=== PATIENT | female | born 1980 | race American Indian/Alaskan Native ===

== ENCOUNTER 2019-08-03 16:00 | Emergency (ER) | payer MEDICAID ==
[2019-08-03] MEDS ORDERED: SODIUM CHLORIDE 0.9% 1000 ML 1,000 ML IV ONE ×2 (18:01→22:40)
--- NOTE | 2019-08-03 18:19 | Emergency Department Report ---
ED Syncope HPI - General Chief Complaint: Headache Stated Complaint: ABDOMINAL PAIN/VOMITING Time Seen by Provider: 08/03/19 18:01 Source: patient, family Exam Limitations: no limitations - History of Present Illness Initial Comments: Patient is a 39-year-old female that presents emergency room for syncopal episode and fall. Patient states she was at work felt lightheaded went to the bathroom and woke up 2 hours later. Patient states her coworkers had to wake her up and called EMS. Patient states she doesn't remember anything but notes that she fell and has a headache. Patient states she must of hit her head and face because she chipped her tooth. Patient also sustained a abrasion to her bottom lip. Patient states she is having a headache at this time at a 10 out of 10. Patient states it is worse with movement and light. Patient states is better with closing her eyes and rest. States she's having 10 out of 10 abdominal pain. Patient states the pain is generalized. Patient denies nausea vomiting. Patient denies diarrhea. Patient states she feels disoriented. Timing/Prior Episodes: no prior history Precipitating Factors: Positive: lightheadedness Context: standing Loss of Consciousness: prolonged (minutes) (2 hours) Current Symptoms: blurred vision, dizziness, headache, injury, lightheadedness, weakness. denies: chest pain, diaphoresis, loss of bladder control, loss of bowel control, motionless, nausea, pale, shallow/rapid breathing, weak/absent pulse - Related Data Allergies/Adverse Reactions: Allergies No Known Allergies Allergy (Verified 08/03/19 18:02) Home Medications: Ambulatory Orders No Known Home Medications [No Reported Home Medications] 08/03/19 ED Review of Systems ROS: Stated complaint: ABDOMINAL PAIN/VOMITING Other details as noted in HPI Constitutional: denies: chills, fever Eyes: denies: eye pain, eye discharge, vision change ENT: denies: ear pain, throat pain Respiratory: denies: cough, shortness of breath, wheezing Cardiovascular: denies: chest pain, palpitations Endocrine: no symptoms reported Gastrointestinal: abdominal pain. denies: nausea, diarrhea Genitourinary: denies: urgency, dysuria, discharge Musculoskeletal: denies: back pain, joint swelling, arthralgia Skin: denies: rash, lesions Neurological: denies: headache, weakness, paresthesias Psychiatric: denies: anxiety, depression Hematological/Lymphatic: denies: easy bleeding, easy bruising ED Past Medical Hx - Past Medical History Previous Medical History?: No Additional medical history: Tubes tied - Surgical History Past Surgical History?: Yes Additional Surgical History: tubal ligation - Family History Family history: no significant - Social History Smoking Status: Never Smoker Substance Use Type: None - Medications Home Medications: Home Medications Medication Instructions Recorded Confirmed Last Taken Type No Known Home Medications [No 08/03/19 08/03/19 Unknown History Reported Home Medications] ED Physical Exam - General Limitations: No Limitations General appearance: alert, in no apparent distress - Head Head exam: Present: atraumatic, normocephalic - Eye Eye exam: Present: normal appearance, PERRL, EOMI Pupils: Present: normal accommodation - ENT ENT exam: Present: mucous membranes moist - Neck Neck exam: Present: normal inspection - Respiratory Respiratory exam: Present: normal lung sounds bilaterally. Absent: respiratory distress, wheezes, rales - Cardiovascular Cardiovascular Exam: Present: regular rate, normal rhythm. Absent: systolic murmur, diastolic murmur, rubs, gallop - GI/Abdominal GI/Abdominal exam: Present: soft, normal bowel sounds - Rectal Rectal exam: Present: deferred - Extremities Exam Extremities exam: Present: normal inspection, full ROM - Back Exam Back exam: Present: normal inspection - Neurological Exam Neurological exam: Present: alert, altered - Skin Skin exam: Present: warm, dry, normal color, abrasion (lower lip). Absent: rash ED Course Vital Signs 08/03/19 08/03/19 08/03/19 16:05 16:15 16:19 Temperature 98.3 F Pulse Rate 92 H 76 83 Respiratory 18 15 18 Rate Blood Pressure 141/60 Blood Pressure 141/60 [Left] O2 Sat by Pulse 97 100 97 Oximetry 08/03/19 08/03/19 08/03/19 16:31 16:45 17:00 Temperature Pulse Rate 84 91 H 87 Respiratory 16 15 19 Rate Blood Pressure 144/74 141/86 119/66 Blood Pressure [Left] O2 Sat by Pulse 100 100 100 Oximetry 08/03/19 08/03/19 08/03/19 17:31 18:00 18:30 Temperature Pulse Rate 73 71 89 Respiratory 19 24 20 Rate Blood Pressure 127/60 159/65 141/70 Blood Pressure [Left] O2 Sat by Pulse 100 100 100 Oximetry 08/03/19 08/03/19 08/03/19 19:00 19:31 20:01 Temperature Pulse Rate 90 Respiratory 28 H 29 H Rate Blood Pressure 155/75 141/70 135/73 Blood Pressure [Left] O2 Sat by Pulse 100 100 96 Oximetry 08/03/19 08/03/19 08/03/19 20:05 20:30 20:35 Temperature Pulse Rate Respiratory 18 18 Rate Blood Pressure 123/65 Blood Pressure [Left] O2 Sat by Pulse 98 Oximetry 08/03/19 08/03/19 08/03/19 21:13 21:30 22:00 Temperature Pulse Rate Respiratory Rate Blood Pressure 122/59 124/60 124/60 Blood Pressure [Left] O2 Sat by Pulse 99 100 100 Oximetry 08/03/19 08/03/19 08/03/19 22:48 23:00 23:30 Temperature Pulse Rate 78 86 Respiratory 16 24 17 Rate Blood Pressure 131/58 140/64 143/72 Blood Pressure [Left] O2 Sat by Pulse 98 99 Oximetry 08/04/19 00:00 Temperature Pulse Rate 81 Respiratory 25 H Rate Blood Pressure 143/72 Blood Pressure [Left] O2 Sat by Pulse 98 Oximetry - Reevaluation(s) Reevaluation #1: She still complaining of a severe headache. Patient will be given Dilaudid 08/03/19 19:53 Reevaluation #2: Family at bedside. Patient states her headache is improving. 08/03/19 21:20 Reevaluation #3: Patient states her headache is returning. Patient given another dose of Dilaudid. Blood pressure better. 08/03/19 22:25 - Consultations Consultation #1: Radiologist called states the patient has signs of a ruptured aneurysm and recommends a CTA. 08/03/19 21:50 Consultation #2: [facility] paged 08/03/19 23:45 I discussed case with neurosurgeon, Dr. Akers. Dr. Akers has accepted the patient to be transferred to [facility] neuro ICU. 08/03/19 23:59 ED Medical Decision Making - Lab Data Result diagrams: 08/03/19 08:10 08/03/19 19:30 - EKG Data -: EKG Interpreted by Al EKG shows normal: sinus rhythm, axis, intervals, QRS complexes, ST-T waves Rate: normal - Radiology Data Radiology results: report reviewed Exam: CT cervical spine History: fall.; Technique: Contiguous thin cut axial images obtained through the cervical spine. Sagittal and coronal reconstructions performed by the technologist. All CT scans at this location are performed using CT dose reduction for ALARA by means of automated exposure control. Findings: No priors. There is no evidence of fracture or traumatic subluxation. Vertebral bodies are normal in height and alignment. Minimal loss of disc height is seen at C5-C6 level. Other disc heights are normal. Broad-based disc protrusion with calcified annulus seen. Right neuroforamen is narrowed. No significant degenerative change seen in the uncinate or facet joints. Surrounding soft tissues are grossly normal. Impression: No signs of acute bony trauma to the cervical spine. CT head/brain wo con INDICATION / CLINICAL INFORMATION: 39 years Female; Headache. syncope. head injury. TECHNIQUE: Routine CT head without contrast. All CT scans at this location are performed using CT dose reduction for ALARA by means of automated exposure control. COMPARISON: None. FINDINGS: This is an abnormal CT scan. BRAIN / INTRACRANIAL CONTENTS: Subarachnoid hemorrhage is seen in the anterior interhemispheric fissure, sella turcica and in the pericallosal cyst on. These findings suggest subarachnoid hemorrhage. Though post traumatic subarachnoid hemorrhages could happen, these are usually sulcal and focal and not cisternal.Lateral ventricles and third ventricle are mildly dilated. These findings, subarachnoid hemorrhage possibly from anterior communicating artery has to be excluded. Please obtain CTA of the brain. CRANIOCERVICAL JUNCTION: No significant abnormality. ORBITS: No significant abnormality of visualized orbits. SINUSES / MASTOIDS: No significant abnormality of the visualized paranasal sinuses or mastoid air cells. ADDITIONAL FINDINGS: None. IMPRESSION: Arachnoid hemorrhage in the interhemispheric fissure extending around the pericallosal cistern; anterior communicating artery aneurysm rupture CT ABDOMEN AND PELVIS WITH CONTRAST INDICATION: abd pain. TECHNIQUE: Axial CT images were obtained through the abdomen and pelvis after 100 cc Omnipaque [address] scans at this location are performed using CT dose reduction for ALARA by means of automated exposure control. COMPARISON: None available. FINDINGS: LOWER CHEST: No significant abnormality. LIVER: 6 cm hemangioma anterior hepatic segment with peripheral nodular discontinuous enhancement. No liver laceration. No perihepatic fluid. GALLBLADDER: No significant abnormality. BILE DUCTS: No significant abnormality. PANCREAS: No significant abnormality. SPLEEN: No significant abnormality. ADRENALS: No significant abnormality. RIGHT KIDNEY and URETER: No significant abnormality. LEFT KIDNEY and URETER: No significant abnormality. STOMACH and SMALL BOWEL: No significant abnormality. COLON: No significant abnormality. APPENDIX: No significant abnormality. PERITONEUM: No free fluid. No free air. No fluid collection. LYMPH NODES: No significant adenopathy. AORTA and ARTERIES: No significant abnormality. IVC and VEINS: No significant abnormality. URINARY BLADDER: No significant abnormality. REPRODUCTIVE ORGANS: No significant abnormality. ADDITIONAL FINDINGS: None. SKELETAL SYSTEM: No significant abnormality. IMPRESSION: 1. No traumatic intra-abdominal or pelvic injury. 2. 6 cm hemangioma within anterior hepatic segment CT FACE HISTORY: Fell down COMPARISON: None. TECHNIQUE: Axial images of the face were obtained. Sagittal and coronal reformats were generated. CONTRAST: None. FINDINGS: Facial bones: Midface is normal. Nasal bones, perpendicular plate of ethmoid and median nasal septum are normal. I do not see soft tissue swelling along the median nasal septum. Bony septal spur is projecting to the right side. Orbits are normal. Zygomaxillary complex is normal. Mandible is normal. Orbits: No significant abnormality. Additional findings: None. IMPRESSION: 1. No significant abnormality. - Medical Decision Making Patient is a 39-year-old female that presents emergency room with dizziness and headache and Prolonged syncopal episode. Patient had multiple CT scans. Patient found to have altered mental status. Patient had a CT face due to facial trauma. Patient had a CT abdomen due to complaints of abdominal pain. Patient had a head CT due to syncope and headache. Patient had a negative CT. Patient's facial CT, abdominal CT, neck CT negative for acute findings. Patient's head CT positive for possible arachnoid hemorrhage. Patient had a CTA of the head done which shows a ruptured aneurysm the anterior artery with hydrocephalus. Patient transferred to [facility], neuro ICU. Accepting physician is Dr. Akers. Patient's labs unremarkable except for anemia, elevated WBC. - Differential Diagnosis WARD. DIZINESS, SYNCOPE. SDH, N/V Critical Care Time: Yes Critical care time in (mins) excluding proc time.: 80 Critical care attestation.: If time is entered above; I have spent that time in minutes in the direct care of this critically ill patient, excluding procedure time. Critical Care Time: 80 minutes ED Disposition Clinical Impression: Prolonged loss of consciousness, Dizziness, Subarachnoid hemorrhage, Ruptured cerebral aneurysm Nausea & vomiting Qualifiers: Vomiting type: unspecified Vomiting Intractability: non-intractable Qualified Code(s): R11.2 - Nausea with vomiting, unspecified Altered mental state Qualifiers: Altered mental status type: unspecified Qualified Code(s): R41.82 - Altered mental status, unspecified Syncope Qualifiers: Syncope type: unspecified Qualified Code(s): R55 - Syncope and collapse Headache Qualifiers: Headache type: unspecified Headache chronicity pattern: acute headache Intractability: intractable Qualified Code(s): R51 - Headache Facial trauma Qualifiers: Encounter type: initial encounter Qualified Code(s): S09.93XA - Unspecified injury of face, initial encounter Abrasion of lip Qualifiers: Encounter type: initial encounter Qualified Code(s): S00.511A - Abrasion of lip, initial encounter Head injury Qualifiers: Encounter type: initial encounter Qualified Code(s): S09.90XA - Unspecified injury of head, initial encounter Abdominal pain Qualifiers: Abdominal location: generalized Qualified Code(s): R10.84 - Generalized abdominal pain Anemia Qualifiers: Anemia type: unspecified type Qualified Code(s): D64.9 - Anemia, unspecified Elevated WBC count Qualifiers: Leukocytosis type: unspecified Qualified Code(s): D72.829 - Elevated white blood cell count, unspecified Disposition: DC/TX-70 ANOTHER TYPE HLTHCARE Is pt being admited?: No Does the pt Need Aspirin: No Condition: Critical Time of Disposition: 00:59 - Assessment Assessment Interval: Baseline - Level of Consciousness 1a. Level of Consciousness: alert/keenly responsive - LOC Questions 1b. LOC Questions: answers both correctly - LOC Command 1c. LOC Commands: performs tasks correctly - Best Gaze 2. Best Gaze: normal - Visual 3. Visual: no visual loss - Facial Palsy 4. Facial Palsy: normal symmetrical movement - Motor Arm 5a. Motor Arm Left: no drift 5b. Motor Arm Right: no drift - Motor Leg 6a. Motor Leg Left: no drift 6b. Motor Leg Right: no drift - Limb Ataxia 7. Limb Ataxia: absent - Sensory 8. Sensory: normal - Best Language 9. Best Language: no aphasia - Dysarthria 10. Dysarthria: normal - Extinction and Inattention 11. Extinction/Inattention: no abnormality - Scoring Total Score: 0 Stroke Severity: No Stroke Symptoms
[2019-08-03] MEDS ORDERED: HYDROmorphone 1 MG/1 ML INJ IV ONE ×2 (19:53→22:39)
[2019-08-03] MEDS ORDERED: ONDANSETRON 4 MG/2 ML INJ IV ONE (19:53)
[2019-08-03] MEDS ORDERED: ONDANSETRON 4 MG/2 ML INJ ONE (19:57)
[2019-08-03 20:01] LABS: Mean Corpuscular HGB Conc 29 % (30-34); Platelet Count 303 K/mm3 (140-440); Red Blood Count 4.99 M/mm3 (3.65-5.03)
[2019-08-03 20:06] LABS: Hematocrit 31.9 % (30.3-42.9); Hemoglobin 9.3 gm/dl (10.1-14.3); Mean Corpuscular Volume 64 fl (79-97); Red Cell Distribution Width 20.5 % (13.2-15.2)
[2019-08-03 20:12] LABS: Alanine Aminotransferase 16 units/L (7-56); Albumin 4.4 g/dL (3.9-5); BUN/Creatinine Ratio 16; Blood Urea Nitrogen 14 mg/dL (7-17); Calcium 9.4 mg/dL (8.4-10.2); Hemolysis Index 12
[2019-08-03 21:28] LABS: Total Cells Counted 100
[2019-08-03 21:29] LABS: Anisocytosis 1+; Hypochromasia 2+
--- NOTE | 2019-08-03 21:55 | Cat Scan Report ---
CT ABDOMEN AND PELVIS WITH CONTRAST INDICATION: abd pain. TECHNIQUE: Axial CT images were obtained through the abdomen and pelvis after 100 cc Omnipaque [address] scans at this location are performed using CT dose reduction for ALARA by means of automated exposure control. COMPARISON: None available. FINDINGS: LOWER CHEST: No significant abnormality. LIVER: 6 cm hemangioma anterior hepatic segment with peripheral nodular discontinuous enhancement. No liver laceration. No perihepatic fluid. GALLBLADDER: No significant abnormality. BILE DUCTS: No significant abnormality. PANCREAS: No significant abnormality. SPLEEN: No significant abnormality. ADRENALS: No significant abnormality. RIGHT KIDNEY and URETER: No significant abnormality. LEFT KIDNEY and URETER: No significant abnormality. STOMACH and SMALL BOWEL: No significant abnormality. COLON: No significant abnormality. APPENDIX: No significant abnormality. PERITONEUM: No free fluid. No free air. No fluid collection. LYMPH NODES: No significant adenopathy. AORTA and ARTERIES: No significant abnormality. IVC and VEINS: No significant abnormality. URINARY BLADDER: No significant abnormality. REPRODUCTIVE ORGANS: No significant abnormality. ADDITIONAL FINDINGS: None. SKELETAL SYSTEM: No significant abnormality. IMPRESSION: 1. No traumatic intra-abdominal or pelvic injury. 2. 6 cm hemangioma within anterior hepatic segment Signer Name: Perry Mello MD Signed: 08/03/2019 9:50 PM Workstation Name: [email or web address]
--- NOTE | 2019-08-03 21:56 | Cat Scan Report ---
CT head/brain wo con INDICATION / CLINICAL INFORMATION: 39 years Female; Headache. syncope. head injury. TECHNIQUE: Routine CT head without contrast. All CT scans at this location are performed using CT dos e reduction for ALARA by means of automated exposure control. COMPARISON: None. FINDINGS: This is an abnormal CT scan. BRAIN / INTRACRANIAL CONTENTS: Subarachnoid hemorrhage is seen in the anterior interhemispheric fissu re, sella turcica and in the pericallosal cyst on. These findings suggest subarachnoid hemorrhage. Th ough post traumatic subarachnoid hemorrhages could happen, these are usually sulcal and focal and not cisternal.Lateral ventricles and third ventricle are mildly dilated. These findings, subarachnoid he morrhage possibly from anterior communicating artery has to be excluded. Please obtain CTA of the bra in. CRANIOCERVICAL JUNCTION: No significant abnormality. ORBITS: No significant abnormality of visualized orbits. SINUSES / MASTOIDS: No significant abnormality of the visualized paranasal sinuses or mastoid air jessie ls. ADDITIONAL FINDINGS: None. IMPRESSION: Arachnoid hemorrhage in the interhemispheric fissure extending around the pericallosal cistern; anter ior communicating artery aneurysm rupture These findings are considered a critical value. The exam was completed on 08/03/2019 8:44 PM. The exa m was reviewed at 8:[address] Sorto was notified at 8.52 pm CDT Signer Name: Shruthi Munoz MD Signed: 08/03/2019 9:51 PM Workstation Name: [id number]
--- NOTE | 2019-08-03 21:59 | Cat Scan Report ---
All CT scans at this location are performed using CT dose reduction for ALARA by means of automated e xposure control. CT FACE HISTORY: Fell down COMPARISON: None. TECHNIQUE: Axial images of the face were obtained. Sagittal and coronal reformats were generated. CONTRAST: None. FINDINGS: Facial bones: Midface is normal. Nasal bones, perpendicular plate of ethmoid and median nasal septum are normal. I do not see soft tissue swelling along the median nasal septum. Bony septal spur is proj ecting to the right side. Orbits are normal. Zygomaxillary complex is normal. Mandible is normal. Orbits: No significant abnormality. Additional findings: None. IMPRESSION: 1. No significant abnormality. Signer Name: Shruthi Munoz MD Signed: 08/03/2019 9:55 PM Workstation Name: [id number]
--- NOTE | 2019-08-03 22:02 | Cat Scan Report ---
Exam: CT cervical spine History: fall.; Technique: Contiguous thin cut axial images obtained through the cervical spine. Sagittal and tanner l reconstructions performed by the technologist. All CT scans at this location are performed using CT dose reduction for ALARA by means of automated exposure control. Findings: No priors. There is no evidence of fracture or traumatic subluxation. Vertebral bodies are normal in height and alignment. Minimal loss of disc height is seen at C5-C6 level. Other disc heights are normal. Broad-based disc p rotrusion with calcified annulus seen. Right neuroforamen is narrowed. No significant degenerative ch daron seen in the uncinate or facet joints. Surrounding soft tissues are grossly normal. Impression: No signs of acute bony trauma to the cervical spine. Signer Name: Shruthi Munoz MD Signed: 08/03/2019 9:58 PM Workstation Name: [id number]
[2019-08-03] MEDS ORDERED: HYDROmorphone 1 MG/1 ML INJ ONE (22:22)
[2019-08-03] MEDS ORDERED: SODIUM CHLORIDE 0.9% 1000 ML 1,000 ML ONE (22:45)
[2019-08-03] MEDS ORDERED: levETIRAcetam 500 MG in DEXTROSE 5% IN WATER 100 ML IV ONE (23:12)
--- NOTE | 2019-08-03 23:49 | Cat Scan Report ---
CTA NECK WITH CONTRAST HISTORY: Subarachnoid hemorrhage COMPARISON: None. TECHNIQUE: Routine CTA of the neck was performed. 3-D/MIP reformats were postprocessed. Percentage s tenosis is determined by direct quantitative measurements of diseased internal carotid artery diamete r compared with normal distal internal carotid artery reference segments or by criteria similar to NA SCET where applicable.All CT scans at this location are performed using CT dose reduction for ALARA b y means of automated exposure control CONTRAST: 75 ml of Omnipaque 350 FINDINGS: Aortic arch: No significant abnormality. Cervical vertebral arteries: No significant abnormality. Common carotid arteries: No significant abnormality. Carotid bifurcations: Normal Cervical internal carotid arteries: No significant abnormality. Additional findings: None. IMPRESSION: 1. Normal CTA of the neck. Signer Name: Shruthi Munoz MD Signed: 08/03/2019 11:44 PM Workstation Name: [id number]
[2019-08-03 23:56] LABS: Bacteria,Urine 1+ /HPF (Negative); Bilirubin,Urine NEG (Negative); Blood,Urine LG (Negative); Color,Urine Yellow (Yellow); Mucus,Urine 1+ /HPF; Urobilinogen,Urine < 2.0 mg/dL (<2.0)
[2019-08-03 23:59] LABS: Amphetamine Screen,Urine PRESUMPTIVE NEGATIVE; Benzodiazepines Screen,Urine PRESUMPTIVE NEGATIVE; Cannabinoid Screen,Urine PRESUMPTIVE NEGATIVE; Cocaine Screen,Urine PRESUMPTIVE NEGATIVE; Methadone Screen,Urine PRESUMPTIVE NEGATIVE; Opiate Screen,Urine PRESUMPTIVE NEGATIVE
[2019-08-04 01:18] VITALS: BP 162/94
== END 2019-08-04 01:10 | disposition other institution (70) ==
LOC: ED 16:00
DX: S00.511A Abrasion of lip, initial encounter (principal); S09.90XA Unspecified injury of head, initial encounter; I60.7 Nontraumatic subarachnoid hemorrhage from unspecified intracranial artery; D72.829 Elevated white blood cell count, unspecified; D64.9 Anemia, unspecified; R10.9 Unspecified abdominal pain; R40.20 Unspecified coma; Z98.51 Tubal ligation status; W19.XXXA Unspecified fall, initial encounter; Y93.89 Activity, other specified; Y92.89 Other specified places as the place of occurrence of the external cause; Y99.8 Other external cause status
CPT/HCPCS: 36415; 70450; 70486; 70496; 70498; 72125; 74177; 80053; 80307; 81001; 82962; 84703; 85007; 85025; 93005; 93010; 96361; 96365; 96375; 99291; 99292; J1170; J1953; J2405; J7030; Q9967; 80320; G0480